=== PATIENT | male | born 1990 | race Caucasian/White ===

== ENCOUNTER 2023-11-19 03:10 | Emergency (ER) | payer BC, SELFPAY ==
[2023-11-19 03:12] VITALS: BP 156/95; PULSE 120; RESP 20; O2SAT 93; BMI 25.8
--- NOTE | 2023-11-19 03:27 | ED_ITS ---
HPI - Altered Mental Status General Chief Complaint: Altered Mental Status Stated Complaint: ALTER MENTAL Time Seen by Provider: 11/19/23 03:23 Source: patient Mode of arrival: ambulance Limitations: no limitations History of Present Illness HPI narrative: patient is sent in from work. He apparently fell asleep at his job. They woke him up and sent him here as they require drug screening as part of their protocol. He states he has a at home that has been keeping him awake and that is why he fell asleep. He is requesting to have whatever test they require so he can return to work. he has now complaint or concern other than he is tired Related Data Home Medications Medication Instructions Recorded Confirmed No Known Home Medications 11/19/23 11/19/23 Allergies Allergy/AdvReac Type Severity Reaction Status Date / Time No Known Drug Allergies Allergy Verified 11/19/23 03:15 Review of Systems ROS Status of ROS 10 or more systems reviewed and unremark able except as noted in history and below PFS PFS Social History Smoking status: Current every day smoker Exam Constitutional Vital Signs, click to edit/add: Last Vital Signs Pulse 120 H 11/19/23 03:12 Resp 20 11/19/23 03:12 BP 156/95 H 11/19/23 03:12 Pulse Ox 93 L 11/19/23 03:12 O2 Del Method Room Air 11/19/23 03:12 Common normals: no apparent distress, average body habitus, oriented x3, no limitations, healthy appearing and alert Eye Common normals: EOMs intact bilaterally and conjunctivae normal Respiratory Common normals: normal respiratory effort, no retractions, no use of accessory muscles and clear to auscultation bilaterally Cardio Common normals: regular rate, regular rhythm, S1 normal heart sound and S2 normal heart sound GI Common normals: Normal to inspection, nondistended, normoactive bowel sounds present, soft to palpation and non-tender Extremity Common normals: normal to inspection and full ROM Neuro Common normals: oriented x3, CN's II-XII intact bilaterally, moves all extremities and no focal motor deficits Psych Appearance: grossly normal Course Vital Signs Vital signs: Vital Signs Pulse Rate 120 H 11/19/23 03:12 Respiratory Rate 20 11/19/23 03:12 Blood Pressure 156/95 H 11/19/23 03:12 Pulse Oximetry 93 L 11/19/23 03:12 Oxygen Delivery Method Room Air 11/19/23 03:12 Pulse Rate 120 H 11/19/23 03:12 Respiratory Rate 20 11/19/23 03:12 Blood Pressure 156/95 H 11/19/23 03:12 Pulse Oximetry 93 L 11/19/23 03:12 Oxygen Delivery Method Room Air 11/19/23 03:12 MDM - Altered Mental Status MDM Narrative Medical decision making narrative: patient present from work. He fell asleep at work and his job requires drug testing as part of their protocol. He is AxOx4 and states he fell asleep because he has a new born. Exam is normal but he does appear tired. Testing per his job requirements and he is discharged Discharge Plan Discharge Chief Complaint: Altered Mental Status Clinical Impression: Fatigue Patient Disposition: Home, Self-Care Prescriptions / Home Meds: No Action No Known Home Medications Instructions: Fatigue (ED) Stand Alone Forms: Portal Instructions Discharge Date/Time: 11/19/23 03:55
--- NOTE | 2023-11-19 03:28 | PC.NURSE ---
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
== END 2023-11-19 03:55 | disposition home or self-care (01) ==
PROVIDERS: Emergency Provider Internal Medicine
DX: R53.83 Other fatigue (principal); F17.210 Nicotine dependence, cigarettes, uncomplicated
CPT/HCPCS: 99281